=== PATIENT | male | born 1945 | race Caucasian/White ===

== ENCOUNTER → 2019-03-30 | Outpatient (CLI) | payer MEDICARE ==
[2015-11-03 11:00] VITALS: BP 118/71
[~2019-03-30] MED LIST: ASPI-482 PO; METO25TA4 PO
--- NOTE | 2019-03-30 11:21 | CARD ---
MR#: [id number] Date of Study: 03/30/2019 Ordering Physician: BETHANIE GOSS, Referring Physician: BETHANIE GOSS, Tech: Ivette Valles [facility] APPROVED REPORT EXAM: Two-dimensional and M-mode echocardiogram with Doppler and color Doppler. Other Information Quality : AverageHR: 83bpm Rhythm : Other INDICATION Pre-Op 2D DIMENSIONS RVDd3.2 (2.9-3.5cm)Left Atrium(2D)3.6 (1.6-4.0cm) IVSd1.1 (0.7-1.1cm)Aortic Root(2D)3.5 (2.0-3.7cm) LVDd4.9 (3.9-5.9cm)LVOT Diameter2.1 (1.8-2.4cm) PWd0.9 (0.7-1.1cm)LVDs2.8 (2.5-4.0cm) FS (%) 42.9 %SV82.4 ml LVEF(%)73.8 (>50%) M-Mode DIMENSIONS Left Atrium(MM)3.74 (2.5-4.0cm)Aortic Root3.48 (2.2-3.7cm) Aortic Valve AoV Peak Ronaldo.207.8cm/sAoV VTI42.0cm AO Peak GR.17.3mmHgLVOT Peak Ronaldo.104.0cm/s AO Mean GR.9mmHgAVA (VMAX)1.71cm2 DUYEN (VTI)1.80cm2 Mitral Valve MV E Szryfkxs209.8cm/sMV DECEL [id number] MV A Pcmahiiv66.3cm/sE/A Ratio1.2 Pulmonary Valve PV Peak Hiraiuxn375.3cm/s Tricuspid Valve TR P. Avegycnr756st/sRAP ADMACQDS5caMi TR Peak Gr.76hbMyMUPD05wiDs LEFT VENTRICLE The left ventricle is normal size. Proximal septal thickening is noted. The left ventricular systolic function is normal. The Ejection Fraction is 65-70%. There is normal LV segmental wall motion. Trans mitral Doppler flow pattern is Grade II-pseudonormal filling dynamics. RIGHT VENTRICLE The right ventricle is normal size. There is normal right ventricular wall thickness. The right ventr icular systolic function is normal. ATRIA The left atrium size is normal. The right atrium size is normal. The interatrial septum is intact wit h no evidence for an atrial septal defect or patent foramen ovale as noted on 2-D or Doppler imaging. AORTIC VALVE The aortic valve is trileaflet. The aortic valve is mildly calcified. Doppler and Color Flow revealed no significant aortic regurgitation. There is no significant aortic valvular stenosis. MITRAL VALVE The mitral valve is normal in structure and function. There is no evidence of mitral valve prolapse. There is no mitral valve stenosis. Doppler and Color-flow revealed trace mitral regurgitation. TRICUSPID VALVE The tricuspid valve is normal in structure and function. Doppler and Color Flow revealed trace tricus pid regurgitation. There is moderate pulmonary hypertension. The PA pressure was estimated at 50 mmHg . There is no tricuspid valve prolapse or vegetation. There is no tricuspid valve stenosis. PULMONIC VALVE The pulmonary valve is normal in structure and function. Doppler and Color Flow revealed no pulmonic valvular regurgitation. There is no pulmonic valvular stenosis. GREAT VESSELS The aortic root is normal in size. The ascending aorta is normal in size. The IVC is normal in size a nd collapses >50% with inspiration. PERICARDIAL EFFUSION There is no evidence of significant pericardial effusion. Critical Notification Critical Value: No <Conclusion> The left ventricular systolic function is normal. The Ejection Fraction is 65-70%. There is normal LV segmental wall motion. Transmitral Doppler flow pattern is Grade II-pseudonormal filling dynamics. Trace mitral regurgitation. Trace tricuspid regurgitation. There is moderate pulmonary hypertension. The PA pressure was estimated at 50 mmHg. There is no evidence of significant pericardial effusion. Signed by : Faheem Vitale, Electronically Approved : 03/30/2019 11:20:19
== END | disposition home or self-care (01) ==
LOC: ECHO 10:15
PROVIDERS: ATTEND Internal Medicine Cardiovascular Disease
DX: Z01.810 Encounter for preprocedural cardiovascular examination (principal); I35.8 Other nonrheumatic aortic valve disorders; I27.20 Pulmonary hypertension, unspecified
CPT/HCPCS: 93306